=== PATIENT | female | born 1945 | race Caucasian/White ===

== ENCOUNTER → 2017-08-02 | Outpatient (CLI) | payer MEDICARE ==
[~2017-08-02] MED LIST: EFFEXOR PO; OXYC-296 PO
== END | disposition home or self-care (01) ==
LOC: CFH 13:14
PROVIDERS: ATTEND Psychiatry & Neurology Neurology
DX: H05.20 Unspecified exophthalmos (principal); E07.9 Disorder of thyroid, unspecified
CPT/HCPCS: 70480